=== PATIENT | male | born 1930 | race Caucasian/White ===

== ENCOUNTER 2016-11-25 18:38 | Emergency (ER) | payer MEDICARE, BC ==
[2016-11-25 18:47] VITALS: TEMP 97.7
--- NOTE | 2016-11-25 18:58 | ED ---
General Adult HPI - General Chief complaint: Fall Stated complaint: fall Time Seen by Provider: 11/25/16 18:49 Source: patient, EMS, RN notes reviewed Mode of arrival: EMS Limitations: no limitations - History of Present Illness Initial comments: Patient 86-year-old male who presents emergency room today with a chief complaint of an injury to the back of his scalp. He does admit that he has a history of pulling on his right knee gives out from time to time. He states gave out on he fell backwards hitting the back of his head on a cabinet causing a laceration. He states his tetanus up-to-date. He denies any loss conscious. Denies any headache. Denies any neck pain. Denies any other complaints or associated symptoms. Patient denies any recent fever, chills, shortness of breath, chest pain, back pain, abdominal pain, nausea or vomiting, numbness or tingling, dysuria or hematuria, constipation or diarrhea, headaches or visual changes, or any other complaints. - Related Data Home Medications Medication Instructions Recorded Confirmed Alendronate Sodium [Fosamax] 70 mg PO MO 11/25/16 11/25/16 Alfuzosin HCl [Alfuzosin HCl ER] 10 mg PO DAILY 11/25/16 11/25/16 Aspirin EC [Ecotrin Low Dose] 81 mg PO DAILY 11/25/16 11/25/16 Atorvastatin Calcium [Lipitor] 80 mg PO DAILY 11/25/16 11/25/16 Calcium Carbonate [Calcium] 1,200 mg PO DAILY 11/25/16 11/25/16 Calcium Polycarbophil [Fiber-Lax] 1,250 mg PO BID 11/25/16 11/25/16 Celecoxib [CeleBREX] 200 mg PO DAILY 11/25/16 11/25/16 Cyanocobalamin (Vitamin B-12) 1,000 mcg PO BID 11/25/16 11/25/16 [Vitamin B-12] Cyanocobalamin/Folic AC/Vit B6 1 tab PO DAILY 11/25/16 11/25/16 [Folbee Tablet] Diclofenac Epolamine [Flector 1.3% 2 patch TRANSDERM DAILY PRN 11/25/16 11/25/16 Patch] Diclofenac Sodium [Pennsaid] 2 spray TOPICAL BID 11/25/16 11/25/16 Docusate [Colace] 500 mg PO BID 11/25/16 11/25/16 Donepezil [Aricept] 10 mg PO HS 11/25/16 11/25/16 Glucosam/Sahil-Msm1/C/Jordy/Bosw 1 tab PO BID 11/25/16 11/25/16 [Glucosamine-Chondroitin Tablet] Metoprolol Tartrate [Lopressor] 25 mg PO DAILY 11/25/16 11/25/16 Multivitamins, Thera [Multivitamin 1 tab PO DAILY 11/25/16 11/25/16 (formulary)] Monument-3/Dha/Epa/Fish Oil [Fish Oil 1 cap PO BID 11/25/16 11/25/16 EC 1,200 mg Softgel] Pantoprazole Sodium [Protonix] 40 mg PO DAILY 11/25/16 11/25/16 Ranolazine [Ranexa] 500 mg PO BID 11/25/16 11/25/16 SUMAtriptan SUCCINATE [Imitrex] 100 mg PO BID PRN 11/25/16 11/25/16 Solifenacin Succinate [Vesicare] 10 mg PO BID 11/25/16 11/25/16 Vitamin E (Dl,Tocopheryl Acet) 400 unit PO DAILY 11/25/16 11/25/16 [Vitamin E] oxyCODONE-APAP 7.5-325MG [Percocet 1 tab PO Q6HR 11/25/16 11/25/16 7.5-325 mg] rOPINIRole HCL [Requip] 1 mg PO HS 11/25/16 11/25/16 Allergies Allergy/AdvReac Type Severity Reaction Status Date / Time adhesive tape AdvReac Peels Skin Verified 11/25/16 19:11 esomeprazole [From Nexium] AdvReac Diarrhea Verified 11/25/16 19:11 Review of Systems ROS Statement: Those systems with pertinent positive or pertinent negative responses have been documented in the HPI. ROS Other: All systems not noted in ROS Statement are negative. Past Medical History Past Medical History: CVA/TIA, Myocardial Infarction ([place]) Additional Past Medical History / Comment(s): polio, triple bypass, athritis History of Any Multi-Drug Resistant Organisms: None Reported Past Surgical History: Appendectomy, Cholecystectomy, Orthopedic Surgery, Tonsillectomy Additional Past Surgical History / Comment(s): shoulder pin, foot pined, right anken otrho surgery Past Psychological History: No Psychological Hx Reported Smoking Status: Former smoker Past Alcohol Use History: None Reported Past Drug Use History: None Reported General Exam - General Exam Comments Initial Comments: General: The patient is awake and alert, in no distress, and does not appear acutely ill. Eye: Pupils are equal, round and reactive to light, extra-ocular movements are intact. No nystagmus. There is normal conjunctiva bilaterally. No signs of icterus. Ears, nose, mouth and throat: There are moist mucous membranes and no oral lesions. Neck: The neck is supple, there is no tenderness or JVD. Cardiovascular: There is a regular rate and rhythm. No murmur, rub or gallop is appreciated. Respiratory: Lungs are clear to auscultation, respirations are non-labored, breath sounds are equal. No wheezes, stridor, rales, or rhonchi. Musculoskeletal: Normal ROM, no tenderness. Strength 5/5. Sensation intact. Pulses equal bilaterally 2+. Neurological: A&O x 3. CN II-XII intact, There are no obvious motor or sensory deficits. Coordination appears grossly intact. Speech is normal. Skin: Patient to the occipital area with no active bleeding. Psychiatric: Cooperative, appropriate mood & affect, normal judgment. Limitations: no limitations Course Vital Signs 11/25/16 18:42 Temperature 97.7 F Pulse Rate 64 Respiratory 20 Rate Blood Pressure 164/77 O2 Sat by Pulse 95 Oximetry Procedures - Procedures Initial comment: 5-1/2 cm laceration to the top of the head. The skin was anesthetized with 1% lidocaine without epinephrine. The laceration was then cleansed with Betadine and irrigated with normal saline. The wound was inspected, and there was no evidence of injury to deep structures. No foreign body was noted in the wound. A total of 13 skin feroz were placed with good approximation. Medical Decision Making - Medical Decision Making Patient's CT negative for any acute mellitus. Patient's laceration cleaned and closed here in emergency room. Patient's tetanus is up-to-date. Patient will be discharged home. Return 10 days to have feroz removed. Disposition Clinical Impression: Fall, Scalp laceration Disposition: HOME SELF-CARE Condition: Good Instructions: Laceration (ED) Additional Instructions: Please return to the emergency room 10 days to have feroz removed. Keep area clean with soap and water. Please return to emergency room if any symptoms increase or worsen or any other concerns. Referrals: Nonstaff,Physician [Primary Care Provider] - 1-2 days Time of Disposition: 19:42
--- NOTE | 2016-11-25 19:29 | CT ---
EXAMINATION TYPE: CT brain shane jiang DATE OF EXAM: 11/25/2016 COMPARISON: NONE HISTORY: Fall today, left superior head injury and laceration. No LOC. CT DLP: 1478.82 mGycm Automated exposure control for dose reduction was used. TECHNIQUE: CT scan of the head and cervical spine are performed without contrast. FINDINGS: There is diffuse cerebral cortical atrophy. There is patchy hypodensity in the periventri cular white matter. There is no mass effect nor midline shift. There is no sign of intracranial hemor rhage. The calvarium is intact. Cervical vertebra show fairly normal alignment. There is degenerative disc space narrowing throughout the cervical spine and more severe at C2-3 C5-6 C6-7. There is multilevel hypertrophic facet arthrop athy. Skull base is intact. There is no evidence of a fracture. IMPRESSION: Cerebral atrophy and chronic small vessel ischemia. No acute intracranial abnormality. Multilevel spondylosis. No fracture.
[2016-11-25 20:08] VITALS: BP 129/77; PULSE 87; RESP 16
== END 2016-11-25 20:07 | disposition home or self-care (01) ==
LOC: EC 18:38
DX: S01.01XA Laceration without foreign body of scalp, initial encounter (principal); I25.2 Old myocardial infarction; Z86.73 Personal history of transient ischemic attack (TIA), and cerebral infarction without residual deficits; Z88.8 Allergy status to other drugs, medicaments and biological substances; Z91.048 Other nonmedicinal substance allergy status; Z79.1 Long term (current) use of non-steroidal anti-inflammatories (NSAID); Z79.82 Long term (current) use of aspirin; Z79.899 Other long term (current) drug therapy; Z87.891 Personal history of nicotine dependence; W01.190A Fall on same level from slipping, tripping and stumbling with subsequent striking against furniture, initial encounter; Y92.89 Other specified places as the place of occurrence of the external cause
CPT/HCPCS: 12002; 70450; 72125; 99284